=== PATIENT | male | born 2000 | race Caucasian/White ===

== ENCOUNTER 2023-05-05 18:46 | Emergency (ER) | payer BC ==
[~2023-05-05] VITALS: Ht 167.6 cm; Wt 97.0 kg
[2023-05-05 18:58] VITALS: O2SAT 98
[2023-05-05] MEDS ORDERED: ACETAMINOPHEN 325MG TABLET PO ONE (19:45)
[2023-05-05] MEDS ORDERED: IBUP-2030 MT (20:12)
[2023-05-05 20:36] VITALS: BP 107/64; PULSE 79; RESP 18; TEMP 98.4
== END 2023-05-05 21:00 | disposition home or self-care (01) ==
LOC: ER 18:46
DX: S80.12XA Contusion of left lower leg, initial encounter (principal); X58.XXXA Exposure to other specified factors, initial encounter; Y93.89 Activity, other specified; Y92.89 Other specified places as the place of occurrence of the external cause; Y99.8 Other external cause status
CPT/HCPCS: 73552; 99283